=== PATIENT | male | born 1985 | race Two or more races ===

== ENCOUNTER 2019-11-01 08:48 | Emergency (ER) | payer SELFPAY ==
[~2019-11-01] VITALS: Ht 175.3 cm; Wt 106.4 kg
[2019-11-01] MEDS ORDERED: DIAZEPAM 5 MG TABLET ONE (09:22)
[2019-11-01] MEDS ORDERED: IBUPROFEN 600 MG TABLET ONE (09:22)
[2019-11-01] MEDS ORDERED: IBUPROFEN 600 MG TABLET PO ONE (09:30)
[2019-11-01] MEDS ORDERED: DIAZEPAM 5 MG TABLET PO ONE (09:30)
[2019-11-01 09:40] LABS: BASOPHILS # (AUTO) 0.09 x10^3/uL (0-0.1); BASOPHILS % (AUTO) 1 % (0-1); EOSINOPHILS # (AUTO) 1.18 x10^3/uL (0-0.4); EOSINOPHILS % (AUTO) 12 % (1-7); LYMPHOCYTES # (AUTO) 2.27 x10^3/uL (1-3.4); LYMPHOCYTES % (AUTO) 22 % (22-44); MD NO; MEAN CORPUSCULAR HEMOGLOBIN 31.4 pg (27.5-34.5); MEAN CORPUSCULAR VOLUME 95.1 fL (81-97); MEAN PLATELET VOLUME 8.8 fL (7.4-10.4); MONOCYTES # (AUTO) 0.57 x10^3/uL (0.2-0.8); MONOCYTES % (AUTO) 6 % (2-9); NEUTROPHILS # (AUTO) 6.01 x10^3/uL (1.8-6.8); NEUTROPHILS % (AUTO) 59 % (42-75); PLATELET COUNT 261 x10^3/uL (130-400); RED BLOOD COUNT 5.43 x10^6/uL (4.38-5.82); RED CELL DISTRIBUTION WIDTH 12.9 % (9.4-14.8)
[2019-11-01 09:51] LABS: ANION GAP 6 mmol/L (5-15); CALCIUM 9.5 mg/dL (8.5-10.1); CHLORIDE 105 mmol/L (98-107)
[2019-11-01 09:56] LABS: ALANINE AMINOTRANSFERASE 49 U/L (12-78); ALKALINE PHOSPHATASE 80 U/L (45-117); BILIRUBIN,TOTAL 0.7 mg/dL (0.2-1.0); CREATININE 1.13 mg/dL (0.7-1.3); TOTAL PROTEIN 7.9 g/dL (6.4-8.2)
[2019-11-01 10:20] VITALS: BP 124/86
--- NOTE | 2019-11-01 10:22 | NUR ---
PA AT BEDSIDE FOR COVID SWAB
== END 2019-11-01 10:54 | disposition home or self-care (01) ==
LOC: ED 09:48
DX: M54.5 Low back pain (principal); R10.9 Unspecified abdominal pain; M79.10 Myalgia, unspecified site; Z20.828 Contact with and (suspected) exposure to other viral communicable diseases
CPT/HCPCS: 36415; 71045; 80053; 85025; 87635; 93005; 99285